=== PATIENT | male | born 1995 | race Caucasian/White ===

== ENCOUNTER 2017-06-23 19:39 | Emergency (ER) | payer MEDICAID, OTHER ==
[~2017-06-23 19:39] MED LIST: HYDR-3133 PO; PERM5CRE4 TOP; Z.0.NO CURRENT MEDS
[2017-06-23 19:41] VITALS: BP 132/98; PULSE 94; RESP 15; TEMP 98; O2SAT 97
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
--- NOTE | 2017-06-23 21:09 | RADRPT ---
EXAM DATE/TIME: 06/23/2017 20:22 [facility] COMPARISON: No previous studies available for comparison. INDICATIONS : Short of breath and chest pain for about a week. MEDICAL HISTORY : None. SURGICAL HISTORY : None. ENCOUNTER: Initial ACUITY: 1 week PAIN SCORE: 3/10 LOCATION: Bilateral chest FINDINGS: A single view of the chest demonstrates the lungs to be symmetrically aerated without evidence of mas s, infiltrate or effusion. The cardiomediastinal contours are unremarkable. Osseous structures are intact. CONCLUSION: No acute disease. Lars Fernandez MD on June 23, 2017 at 21:08 Board Certified Radiologist. This report was verified electronically.
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
[2017-06-23] MEDS ORDERED: IBUP-232 PO (21:24)
[2017-06-23] MEDS ORDERED: ROBA500T PO (21:24)
[2017-06-23] MEDS ORDERED: ORPHENADRINE INJ 60 MG/2 ML AMP IM ONE (21:30)
[2017-06-23] MEDS ORDERED: KETOROLAC TROMETHAMINE 60 MG/2 ML (IM) VIAL IM ONE (21:30)
== END 2017-06-23 21:44 | disposition home or self-care (01) ==
LOC: NEPK 19:39
DX: S00.90XA Unspecified superficial injury of unspecified part of head, initial encounter (principal); S16.1XXA Strain of muscle, fascia and tendon at neck level, initial encounter; R07.89 Other chest pain; W20.8XXA Other cause of strike by thrown, projected or falling object, initial encounter; Y93.89 Activity, other specified; Y99.0 Civilian activity done for income or pay
CPT/HCPCS: 70450; 71010; 72125; 96372; 99285; J1885; J2360